=== PATIENT | female | born 1960 | race Caucasian/White ===

== ENCOUNTER 2018-02-16 12:03 | Emergency (ER) | payer OTHER ==
--- NOTE | 2018-02-16 13:02 | UC ---
Neck Pain HPI - HPI Summary HPI Summary: 58 y/o female with no PMH, meds- prempro presents with neck pain increasing x several weeks. + increased stress and increased anxiety, notes hair loss, + sweating. no weight loss. very active. neck pain at base of head, neck going down b/l neck. headache generalize. no meds taken for relief. - History of Current Complaint Chief Complaint: UCGeneralIllness Stated Complaint: NECK PAIN Time Seen by Provider: 02/16/18 12:29 Hx Obtained From: Patient ?: No Onset/Duration Of Injury/Symptoms: Weeks Mechanism Of Injury: No Known Trauma Timing: Constant Severity: Mild Pain Intensity: 2 Pain Scale Used: 0-10 Numeric Location: Discrete At: Character: Aching, Stiff Aggravating Factors: Position, Movement - Allergies/Home Medications Allergies/Adverse Reactions: Allergies Allergy/AdvReac Type Severity Reaction Status Date / Time No Known Allergies Allergy Verified 02/16/18 12:37 Home Medications: Home Medications Calcium Carbonate [Calcium] 02/16/18 [History] Cholecalciferol TAB* [Vitamin D TAB*] 02/16/18 [History] Estrogens/Medroxypr 0.3(NF) [Prempro 0.3/1.5 (NF)] 02/16/18 [History] [place]-3 Fatty Acids (Nf) [Fish Oil (NF)] 02/16/18 [History] PMH/Surg Hx/FS Hx/Imm Hx Previously Healthy: Yes - Surgical History Surgical History: None - Social History Alcohol Use: Occasionally Substance Use Type: None Smoking Status (MU): Never Smoked Tobacco - Immunization History Most Recent Tetanus Shot: UTD Review Of Systems Musculoskeletal: Positive: Myalgia All Other Systems Reviewed And Are Negative: No Physical Exam - Summary Physical Exam Summary: ELGIN PRATT Triage Information Reviewed: Yes Appearance: Well-Appearing, No Pain Distress, Well-Nourished Vital Signs: Initial Vital Signs Temp 98.3 F 02/16/18 12:31 Pulse 66 02/16/18 12:31 Resp 18 02/16/18 12:31 BP 126/69 02/16/18 12:31 Pulse Ox 100 02/16/18 12:31 Vital Signs Reviewed: Yes Neck: Positive: Supple, No Lymphadenopathy, Tenderness @ - posterior occiput. Negative: Nuchal Rigidity, Enlarged Nodes @ Musculoskeletal: Positive: Strength Intact, ROM Intact, No Edema, Other: - neg brud, neg kernigs. no papilledema. full ROM no midline cervical tenderness. Psychological Exam: Normal Neck Pain Course/Dx - Course Course Of Treatment: tension headache with torticolus, valium for sleep, - Differential Dx/Diagnosis Differential Dx/HQI/PQRI: Cervical Fracture, Sprain, Strain, Torticollis Provider Diagnoses: tension headache, torticollis Discharge - Sign-Out/Discharge Documenting (check all that apply): Patient Departure All imaging exams completed and their final reports reviewed: No Studies - Discharge Plan Condition: Good Disposition: HOME Prescriptions: Diazepam TAB(*) [Valium TAB(*)] 5 mg PO BEDTIME PRN #3 tab MDD 5mg PRN Reason: muscle spasm Patient Education Materials: Tension Headache (ED), Spasmodic Torticollis (ED) Referrals: No Primary Care Phys,NOPCP [Primary Care Provider] - Additional Instructions: - Increase fluid intake - Over the counter NSAIDs- motrin, alleve, for 5 days to decrease inflammation, help with headache - lab work drawn for lyme, anemia, thyroid function - Follow up at ER with fever, chills, increased neck pain, severe headache not resolved by NSAIDs - Valium at night to help with muscle spasms - Billing Disposition and Condition Condition: GOOD Disposition: Home
[2018-02-16 18:34] LABS: ABS Basophils 0 10^3/ul (0-0.2); ABS Eosinophils 0.1 10^3/ul (0-0.6); ABS Lymphocytes 1.2 10^3/ul (1.0-4.8); ABS Monocytes 0.5 10^3/ul (0-0.8); ABS Neutrophils 2.4 10^3/ul (1.5-7.7); ABS Nucleated RBC 0 10^3/ul; Eosinophil % 1.7 % (0-6); Hematocrit 40 % (35-47); Hemoglobin 13.5 g/dl (12.0-16.0); Lymphocyte % 28.9 % (25-47); Mean Corpuscular HGB Conc 34 g/dl (31-36); Mean Corpuscular Hemoglobin 31 pg (27-31); Mean Corpuscular Volume 92 fL (80-97); Mean Platelet Volume 9.8 um3 (7.4-10.4); Nucleated Red Blood Cells % 0.2; Platelet Count 197 10^3/ul (150-450); Red Blood Count 4.37 10^6/ul (4.00-5.40); Red Cell Distribution Width 13 % (10.5-15); White Blood Count 4.1 10^3/ul (3.5-10.8)
--- NOTE | 2018-02-19 07:30 | UC ---
- Progress Note Progress Note: lyme serology negative, no further action at this time Discharge - Sign-Out/Discharge Documenting (check all that apply): Patient Departure All imaging exams completed and their final reports reviewed: No Studies - Discharge Plan Condition: Good Disposition: HOME Prescriptions: Diazepam TAB(*) [Valium TAB(*)] 5 mg PO BEDTIME PRN #3 tab MDD 5mg PRN Reason: muscle spasm Patient Education Materials: Tension Headache (ED), Spasmodic Torticollis (ED) Referrals: No Primary Care Phys,NOPCP [Primary Care Provider] - Additional Instructions: - Increase fluid intake - Over the counter NSAIDs- motrin, alleve, for 5 days to decrease inflammation, help with headache - lab work drawn for lyme, anemia, thyroid function - Follow up at ER with fever, chills, increased neck pain, severe headache not resolved by NSAIDs - Valium at night to help with muscle spasms - Billing Disposition and Condition Condition: GOOD Disposition: Home
== END 2018-02-16 13:26 | disposition home or self-care (01) ==
LOC: UCEAST 12:03
DX: G44.209 Tension-type headache, unspecified, not intractable (principal); M43.6 Torticollis; M79.10 Myalgia, unspecified site
CPT/HCPCS: 36415; 84443; 85025; 86618; 99202; G0463